=== PATIENT | female | born 1940 | race Caucasian/White ===

== ENCOUNTER 2016-12-15 07:48 | Emergency (ER) | payer MEDICARE, BC ==
[2016-12-15] MEDS ORDERED: Sodium Chloride 0.9% 10 ML Syringe FLUSH PRN (08:05)
[2016-12-15] MEDS ORDERED: Ondansetron 4 MG/2 ML SDV IVPUSH ONE (08:05)
--- NOTE | 2016-12-15 08:13 | EDM.PDOC ---
ED HPI GENERAL MEDICAL PROBLEM - General Chief Complaint: Genitourinary Problem Stated Complaint: BACK AND ABDOMINAL PAIN Time Seen by Provider: 12/15/16 08:00 Source of Information: Reports: Patient History Limitations: Reports: No Limitations - History of Present Illness INITIAL COMMENTS - FREE TEXT/NARRATIVE: The patient presents with right flank pain that radiates to her right lower abdomen. She has some nausea but no vomiting. She has no dysuria or hematuria. She has never had kidney stones before. She has no diarrhea. This started through the night. She has no fever, chills, cough, congestion, chest pain, or shortness of breath. She says the pain comes and goes. She has no appendix but she does have a gallbladder. She has never had kidney stones before. Onset: Gradual Duration: Day(s): (Through the night) Location: Reports: Abdomen (and right flank) Quality: Reports: Sharp Severity: Moderate Improves with: Reports: None Worsens with: Reports: None Associated Symptoms: Reports: Nausea/Vomiting. Denies: Chest Pain, Cough, Fever /Chills, Shortness of Breath Right Flank Pain Score (Numeric/FACES): 5 - Related Data Allergies Allergy/AdvReac Type Severity Reaction Status Date / Time No Known Allergies Allergy Verified 12/15/16 07:52 Home Meds: Home Meds Aspirin [Halfprin] 81 mg PO BRK 12/15/16 [History] Hydrochlorothiazide 12.5 mg PO DAILY 12/15/16 [History] Hydrocodone/Acetaminophen [Hydrocodon-Acetaminophen 5-325] 1 - 2 each PO Q6HR PRN #20 tablet 12/15/16 [Rx] Losartan [Cozaar] 50 mg PO DAILY 12/15/16 [History] Spironolactone [Aldactone] 25 mg PO DAILY 12/15/16 [History] Tamsulosin HCl [Flomax] 0.4 mg PO DAILY #10 cap.er.24h 12/15/16 [Rx] Ubidecarenone [Coq-10] 400 mg PO DAILY 12/15/16 [History] atorvaSTATin [Lipitor] 5 mg PO BEDTIME 12/15/16 [History] Past Medical History Cardiovascular History: Reports: High Cholesterol, Hypertension - Past Surgical History GI Surgical History: Reports: Appendectomy Female Surgical History: Reports: Hysterectomy Social & Family History - Tobacco Use Smoking Status *Q: Never Smoker Second Hand Smoke Exposure: No ED ROS GENERAL - Review of Systems Review Of Systems: See Below Constitutional: Reports: No Symptoms HEENT: Reports: No Symptoms Respiratory: Reports: No Symptoms Cardiovascular: Reports: No Symptoms Endocrine: Reports: No Symptoms GI/Abdominal: Reports: Abdominal Pain, Nausea. Denies: Diarrhea, Vomiting : Reports: Flank Pain (right). Denies: Dysuria Musculoskeletal: Reports: No Symptoms ED EXAM, GI/ABD - Physical Exam Exam: See Below Exam Limited By: No Limitations General Appearance: Alert, No Apparent Distress Ears: Normal External Exam Nose: Normal Inspection Head: Atraumatic, Normocephalic Neck: Normal Inspection Respiratory/Chest: No Respiratory Distress, Lungs Clear, Normal Breath Sounds Cardiovascular: Regular Rate, Rhythm, No Edema, No Murmur GI/Abdominal: Soft, Non-Tender, No Organomegaly, No Mass Back Exam: Normal Inspection Extremities: Normal Inspection Course - Vital Signs Last Recorded V/S: Last Vital Signs Temp 96.6 F 12/15/16 07:52 Pulse 63 12/15/16 07:52 Resp 16 12/15/16 07:52 BP 184/69 H 12/15/16 07:52 Pulse Ox 97 12/15/16 07:52 - Orders/Labs/Meds Orders: Active Orders 24 hr Category Date Time Status Peripheral IV Care [RC] . DIRECTED Care 12/15/16 08:06 Active Sodium Chloride 0.9% [Normal Saline] 1,000 ml Med 12/15/16 08:15 Active IV ASDIRECTED Sodium Chloride 0.9% [Saline Flush] Med 12/15/16 08:05 Active 10 ml FLUSH ASDIRECTED PRN ED Antiemetic Medication Reflex [OM.PC] Stat Oth 12/15/16 08:05 Ordered Peripheral IV Insertion Adult [OM.PC] Stat Oth 12/15/16 08:05 Ordered Medication Orders Sodium Chloride (Normal Saline) 1,000 mls @ 125 mls/hr IV ASDIRECTED PARTHA Last Admin: 12/15/16 08:41 Dose: 125 mls/hr Sodium Chloride (Saline Flush) 10 ml FLUSH ASDIRECTED PRN PRN Reason: Keep Vein Open Last Admin: 12/15/16 08:48 Dose: 10 ml Labs: Laboratory Tests 12/15/16 12/15/16 12/15/16 Range/Units 08:30 08:30 08:30 WBC 8.50 (3.98-10.04) K/mm3 RBC 4.05 (3.98-5.22) M/mm3 Hgb 12.2 (11.2-15.7) gm/L Hct 36.7 (34.1-44.9) % MCV 90.6 (79.4-94.8) fl MCH 30.1 (25.6-32.2) pg MCHC 33.2 (32.2-35.5) g/dl RDW Std Deviation 41.1 (36.4-46.3) fL Plt Count 214 (182-369) K/mm3 MPV 10.7 (9.4-12.3) fl Neut % (Auto) 78.0 H (34.0-71.1) % Lymph % (Auto) 13.6 L (19.3-51.7) % [place] % (Auto) 5.8 (4.7-12.5) % Eos % (Auto) 1.9 (0.7-5.8) Baso % (Auto) 0.2 (0.1-1.2) % Neut # (Auto) 6.63 H (1.56-6.13) K/mm3 Lymph # (Auto) 1.16 L (1.18-3.74) K/mm3 [place] # (Auto) 0.49 H (0.24-0.36) K/mm3 Eos # (Auto) 0.16 (0.04-0.36) K/mm3 Baso # (Auto) 0.02 (0.01-0.08) K/mm3 Sodium 138 (136-145) mEq/L Potassium 4.8 (3.5-5.1) mEq/L Chloride 103 (98-107) mEq/L Carbon Dioxide 24 (21-32) mEq/L Anion Gap 15.8 H (5-15) BUN 42 H (7-18) mg/dL Creatinine 1.4 H (0.55-1.02) mg/dL Est Cr Clr Drug Dosing 25.39 mL/min Estimated GFR (MDRD) 36 (>60) mL/min BUN/Creatinine Ratio 30.0 H (14-18) Glucose 178 H (83-115) mg/dL Calcium 9.5 (8.5-10.1) mg/dL Total Bilirubin 0.4 (0.2-1.0) mg/dL AST 18 (15-37) U/L ALT 25 (14-59) U/L Alkaline Phosphatase 65 (46-116) U/L Total Protein 7.7 (6.4-8.2) g/dl Albumin 3.8 (3.4-5.0) g/dl Globulin 3.9 gm/dL Albumin/Globulin Ratio 1.0 (1-2) Lipase 137 (73-393) U/L Urine Color Yellow (Yellow) Urine Appearance Clear (Clear) Urine pH 5.5 (5.0-8.0) Ur Specific [place] 1.020 (1.005-1.030) Urine Protein Negative (Negative) Urine Glucose (UA) Negative (Negative) Urine Ketones Negative (Negative) Urine Occult Blood 2+ H (Negative) Urine Nitrite Negative (Negative) Urine Bilirubin Negative (Negative) Urine Urobilinogen 0.2 (0.2-1.0) Ur Leukocyte Esterase Negative (Negative) Urine RBC 5-10 H (0-5) /hpf Urine WBC 0-5 (0-5) /hpf Ur Epithelial Cells 0-5 (0-5) /hpf Urine Bacteria Few (FEW) /hpf Urine Mucus Few (FEW) /hpf Meds: Medications Generic Name Dose Route Start Last Admin Trade Name Freq PRN Reason Stop Dose Admin Sodium Chloride 1,000 mls @ 125 mls/hr 12/15/16 08:15 12/15/16 08:41 Normal Saline IV 125 mls/hr ASDIRECTED PARTHA Administration Sodium Chloride 10 ml 12/15/16 08:05 12/15/16 08:48 Saline Flush FLUSH 10 ml ASDIRECTED PRN Administration Keep Vein Open Discontinued Medications Generic Name Dose Route Start Last Admin Trade Name Freq PRN Reason Stop Dose Admin Hydromorphone HCl 0.5 mg 12/15/16 10:05 Dilaudid IVPUSH 12/15/16 10:06 ONETIME ONE Ketorolac Tromethamine 30 mg 12/15/16 08:47 12/15/16 08:50 Toradol IVPUSH 12/15/16 08:48 30 mg ONETIME ONE Administration Ondansetron HCl 4 mg 12/15/16 08:05 12/15/16 08:42 Zofran IVPUSH 12/15/16 08:06 4 mg ONETIME ONE Administration - Re-Assessments/Exams Free Text/Narrative Re-Assessment/Exam: 12/15/16 08:12 I ordered an IV NS at 125ml/hr, zofran 4mg IV, labs, UA and a CT of her abdomen and pelvis. 12/15/16 10:10 Her CBC looks good. Her creatinine was slightly elevated at 1.4. Her UA shows some blood. Her CT shows right sided hydronephrosis cause by an obstructing proximal right ureteral calculus measuring approximately 3mm. This calculus is located at the level of L4-L5. Cysts within both kidneys. She was starting to have more pain so ordered toradol 30mg IV and some dilaudid 0.5mg IV. I will get her on some flomax and some hydrocodone for pain. Departure - Departure Time of Disposition: 10:15 Disposition: Home, Self-Care 01 Condition: good Clinical Impression: Kidney stone, Calculus, ureteral - Discharge Information Prescriptions: Hydrocodone/Acetaminophen [Hydrocodon-Acetaminophen 5-325] 1 - 2 each PO Q6HR PRN #20 tablet PRN Reason: Pain Tamsulosin HCl [Flomax] 0.4 mg PO DAILY #10 cap.er.24h Referrals: Jai Mckenzie MD [Primary Care Provider] - Keo Walker MD [Physician] - Forms: ED Department Discharge Additional Instructions: Drink plenty of fluids. Take motrin or aleve for pain or you can take the hydrocodone for pain. Take the flomax daily until you pass the stone. Follow up with Dr Mckenzie or Dr Walker the urologist if you do not pass the stone in about 5 days. Please return if you are worse such as more pain, nausea or vomiting. - My Orders Last 24 Hours: My Active Orders 12/15/16 08:05 Sodium Chloride 0.9% [Saline Flush] 10 ml FLUSH ASDIRECTED PRN ED Antiemetic Medication Reflex [OM.PC] Stat Peripheral IV Insertion Adult [OM.PC] Stat 12/15/16 08:06 Peripheral IV Care [RC] . DIRECTED 12/15/16 08:15 Sodium Chloride 0.9% [Normal Saline] 1,000 ml IV ASDIRECTED - Assessment/Plan Last 24 Hours: My Active Orders 12/15/16 08:05 Sodium Chloride 0.9% [Saline Flush] 10 ml FLUSH ASDIRECTED PRN ED Antiemetic Medication Reflex [OM.PC] Stat Peripheral IV Insertion Adult [OM.PC] Stat 12/15/16 08:06 Peripheral IV Care [RC] . DIRECTED 12/15/16 08:15 Sodium Chloride 0.9% [Normal Saline] 1,000 ml IV ASDIRECTED
[2016-12-15] MEDS ORDERED: Sodium Chloride 0.9% 1,000 ML IV SCH (08:15)
[2016-12-15] MEDS ORDERED: Ketorolac 30 MG/ML SDV IVPUSH ONE (08:47)
--- NOTE | 2016-12-15 09:43 | CT ---
CT abdomen and pelvis Technique: Multiple axial sections were obtained from above the dome of the diaphragm inferiorly through the pubic symphysis. Intravenous and oral contrast was not utilized. Study has been performed as a ureteral stone protocol. Comparison: No previous intra-abdominal imaging is available. Findings: Right kidney shows hydronephrosis. This finding is due to an obstructing proximal right ureteral stone measuring about 3 mm. This ureteral calculus occurs at the L4-5 level. No additional ureteral calculi are seen. Cyst is identified within the right kidney measuring 3.8 cm. Smaller cyst is noted within the inferior right kidney measuring 9 mm. Small hyperdense area is noted off the more superior right kidney which is felt compatible with a small hemorrhagic cyst measuring 8 mm. Several small cysts are seen within the left kidney measuring less than 1 cm. Small portion of the visualized lung bases shows nothing acute. Noncontrast appearance of the liver and spleen appears within normal limits. Adrenal glands show no nodule. Pancreas is within normal limits. Aorta and iliac vessels shows atherosclerotic change without aneurysmal dilatation. Small normal appearing retroperitoneal lymph nodes are seen. No mesenteric abnormalities are seen. Mild scattered degenerative change is noted within the spine. Impression: 1. Right-sided hydronephrosis caused by an obstructing proximal right ureteral calculus measuring approximately 3 mm. This calculus located at the level of L4-5. 2. Cysts within both kidneys. 3. Other incidental findings. Diagnostic code #3
[2016-12-15] MEDS ORDERED: HYDROmorphone 0.5 MG/0.5 ML Syringe IVPUSH ONE (10:05)
[2016-12-15 11:34] VITALS: BP 130/59
== END 2016-12-15 10:45 | disposition home or self-care (01) ==
LOC: JD.ED 07:48
DX: N13.2 Hydronephrosis with renal and ureteral calculous obstruction (principal); I10 Essential (primary) hypertension; E78.00 Pure hypercholesterolemia, unspecified; Z90.49 Acquired absence of other specified parts of digestive tract; Z90.710 Acquired absence of both cervix and uterus; Z79.82 Long term (current) use of aspirin; Z79.899 Other long term (current) drug therapy
CPT/HCPCS: 36415; 74176; 80053; 81001; 83690; 85025; 96361; 96374; 96375; 99284; J1170; J1885; J2405; J7040; J7050

== ENCOUNTER 2019-07-09 16:28 | Emergency (ER) | payer MEDICARE, BC ==
[2019-07-09 16:47] VITALS: BP 178/74; PULSE 80
--- NOTE | 2019-07-09 16:49 | EDM.PDOC ---
ED HPI GENERAL MEDICAL PROBLEM - General Chief Complaint: Lower Extremity Injury/Pain Stated Complaint: LT KNEE INJURY Time Seen by Provider: 07/09/19 16:38 Source of Information: Reports: Patient, Family (spouse) History Limitations: Reports: No Limitations - History of Present Illness INITIAL COMMENTS - FREE TEXT/NARRATIVE: 79-year-old female presents to the ED with acute left knee pain. She reports that she was just going up stairs and developed sudden onset of severe pain posterior medial left knee. This occurred about an hour ago. She never slipped or fell. Previous positive her knees. Pain is severe with trying to weight- bear. Also the pain in the posterior aspect of the knee when she tries to weight -bear. No previous left knee surgeries. Onset: Today Onset Date: 07/09/19 Onset Time: 15:45 Duration: Minutes: Location: Reports: Lower Extremity, Left (Left posterior medial knee pain) Quality: Reports: Ache, Stabbing, Other Severity: Mild (Much worse with trying to weight-bear mild at rest moderate to severe with weightbearing) Improves with: Reports: Rest Worsens with: Reports: Movement Context: Denies: Activity, Exercise (Weightbearing), Lifting, Sick Contact, Trauma, Other Associated Symptoms: Reports: No Other Symptoms Left Knee Pain Score (Numeric/FACES): 8 - Related Data Allergies Allergy/AdvReac Type Severity Reaction Status Date / Time No Known Allergies Allergy Verified 07/09/19 16:37 Home Meds: Home Meds Aspirin [Halfprin] 81 mg PO DAILY 12/15/16 [History] Losartan [Cozaar] 100 mg PO DAILY 12/15/16 [History] Ubidecarenone [Coq-10] 400 mg PO DAILY 12/15/16 [History] atorvaSTATin [Lipitor] 5 mg PO BEDTIME 12/15/16 [History] hydroCHLOROthiazide [Hydrochlorothiazide] 12.5 mg PO DAILY 12/15/16 [History] Dorzolamide HCl/Pf [Dorzolamide 2% Eye Drop] 1 drop OP BID 07/09/19 [History] Meloxicam 15 mg PO DAILY #12 tablet 07/09/19 [Rx] Multivitamin [Multi-Vitamin Daily] 1 each PO DAILY 07/09/19 [History] Propylene Glycol/PEG 400/Pf [Systane 0.3-0.4% Eye Drops] 1 each OP BID 07/09/19 [History] Vit C/E/Zn/Coppr/Lutein/Zeaxan [Preservision Areds 2 Softgel] 1 each PO DAILY [History] amLODIPine [Norvasc] 2.5 mg PO DAILY 07/09/19 [History] oxyCODONE HCl/Acetaminophen [Percocet 5-325 mg Tablet] 1 - 2 each PO Q4H PRN # 15 tablet 07/09/19 [Rx] Past Medical History Cardiovascular History: Reports: High Cholesterol, Hypertension - Past Surgical History GI Surgical History: Reports: Appendectomy Female Surgical History: Reports: Hysterectomy Social & Family History - Tobacco Use Smoking Status *Q: Never Smoker - Caffeine Use Caffeine Use: Reports: Coffee - Recreational Drug Use Recreational Drug Use: No - Living Situation & Occupation Living situation: Reports: Occupation: Retired Review of Systems - Review of Systems Review Of Systems: See Below Constitutional: Reports: No Symptoms Eyes: Reports: Glasses Ears: Reports: No Symptoms Nose: Reports: No Symptoms Mouth/Throat: Reports: No Symptoms Respiratory: Reports: No Symptoms Cardiovascular: Reports: No Symptoms, Other (History of hypertension) GI/Abdominal: Reports: No Symptoms Genitourinary: Reports: Other (Urinary frequency.) Musculoskeletal: Reports: Neck Pain (Occasional), Shoulder Pain ( occasionaloccasional ), Back Pain, Joint Pain (QT left knee pain today.) Skin: Reports: No Symptoms Neurological: Reports: No Symptoms Psychiatric: Reports: No Symptoms ED EXAM, GENERAL - Physical Exam Exam: See Below Exam Limited By: No Limitations General Appearance: Alert, WD/WN, No Apparent Distress, Other (Capture 37.1. Heart rate is 80 and sinus. BP mildly elevated 178/74.) Extremities: Other (Examination was limited to both lower extremities. She has no dependent edema. She had full normal range of motion of her right knee and no pain on palpation of the calf or tendons around the knee. On the left side clinically she has a very minimal effusion. Is tenderness along the medial joint space particularly over the week MCL ligament. However there is no evidence that there is any laxity of the cruciates or the MCL ligament. Dressing the medial meniscus did 18 exacerbate her pains suggesting medial meniscal tear. Patellofemoral articulation appears to be normal) Neurological: Alert, Oriented, CN II-XII Intact, Normal Cognition. No: Normal Gait (Severe limping gait when she tries to put any weight on the left knee.) Psychiatric: Normal Affect, Normal Mood Skin Exam: Warm, Dry, Intact, Normal Color, No Rash Course - Vital Signs Last Recorded V/S: Last Vital Signs Temp 37.1 C 07/09/19 16:35 Pulse 80 07/09/19 16:35 Resp 16 07/09/19 16:35 BP 178/74 H 07/09/19 16:35 Pulse Ox 100 07/09/19 16:35 - Orders/Labs/Meds Orders: Active Orders 24 hr Category Date Time Status Knee 3V Lt [CR] Stat Exams 07/09/19 16:42 Taken DME for Discharge [COMM] Routine Oth 07/09/19 17:12 Ordered - Radiology Interpretation Free Text/Narrative:: 79-year-old female presents the ED with acute onset of pain the medial posterior aspect of her left knee while she was walking upstairs. She never slipped or fell. There was no twist injury to the knee. He has problems with her knee or previous surgery. Reveals a very minimal effusion. About an hour ago. Severe pain medial posterior knee with weightbearing. Ligaments appear to be intact. Dressing the medial meniscus exacerbated her pain suggesting medial meniscal tear. Carlos A x-ray of the knee will be obtained to make sure we do not see any obvious loose bodies or occult fracture. She reports that she is osteopenic - Re-Assessments/Exams Free Text/Narrative Re-Assessment/Exam: 07/09/19 17:15: X-ray of the left knee possibly shows a very minimal loose body in the midline of the knee. There is very minimal degenerative arthritic change in the true knee joint and patellofemoral articulation is normal. On reexamination ligaments are intact and no laxity of the MCL identified. There is a very minimal traumatic effusion. Stressing the medial meniscus was strongly positive clinically she has a tear of her medial meniscus. I will have her follow-up with Dr. Brunett in 10 days' time. Advised that often the pain will settle down over a week or 10 days and no further intervention is required. An MRI will be booked as an outpatient due to her age there is a much higher risk of a significant tear need for surgery. She and her have plans to travel to [place] in the next week to 10 days for winter vacation. Therefore she needs something done she would prefer to have surgery as soon as possible. The meantime I will place her on meloxicam acting milligrams once daily for 12 days. She will stop her aspirin 81 mg once daily while on the meloxicam. Percocet tabs 5/3/25 milligrams strength one tablet every 4-6 hours as needed for pain relief. Advised pain is often quite bad for the first 3 days and then usually subsides a good deal. Ice pack to the area one half hour out of every 4 hours today and tomorrow. After that may apply heat. By surgery make a follow- up appoint with Dr. Story- orthopedic surgeon-- tomorrow morning as she knows cancel the appointment in 10 days' time of her knee gets much better. Departure - Departure Time of Disposition: 17:09 Disposition: Home, Self-Care 01 Condition: Fair Clinical Impression: Acute internal derangement of left knee Acute medial meniscal tear Qualifiers: Encounter type: initial encounter Laterality: left Qualified Code(s): S83.242A - Other tear of medial meniscus, current injury, left knee, initial encounter - Discharge Information *PRESCRIPTION DRUG MONITORING PROGRAM REVIEWED*: Not Applicable *COPY OF PRESCRIPTION DRUG MONITORING REPORT IN PATIENT ISMAEL: Not Applicable Prescriptions: Meloxicam 15 mg PO DAILY #12 tablet oxyCODONE HCl/Acetaminophen [Percocet 5-325 mg Tablet] 1 - 2 each PO Q4H PRN # 15 tablet PRN Reason: pain relief. Instructions: How to Use a Knee Immobilizer, [id number], Pain Medicine Instructions, [id number] Referrals: Jai Mckenzie MD [Primary Care Provider] - Forms: ED Department Discharge Additional Instructions: Evaluation the emergency room today in regards to acute pain in the left knee that occurred was stepping up stairs this afternoon. Examination shows a very minimal amount of fluid within the knee or what we call a effusion or swelling. Ligaments are all intact. Stressing the medial meniscus however cause significant pain medial meniscal( cartilage) tear. This will make weightbearing very painful for the next 3 days and then should start to slowly improve. The may swell more over the next 12-24 hours depending on the severity of the tear are now much bleeding goes on to the knee. Ice pack to the knee for one half hour out of every 4 hours today and tomorrow. After this may apply heat to the knee. Treatment is left knee immobilizer ideally on during the day and off at night although her depends him anytime she get up to the washroom he may leave it on overnight as well. Asked a walker to age her balance and help you walk until the knee gets better. I will arrange for an MRI as an outpatient and I will do x-ray department call you tomorrow with an appointment time to MRI your knee. Please make an appointment to see Dr. Story--orthopedic surgeon tomorrow morning when his clinic opens in about 10 days time. We usually wait 7- 10 days to see if the knee pain settles down before decisions about any operative intervention are required. The MRI will help sort this out. His phone number is [phone]. Medication is to be meloxicam 15 mg once daily for the next 12 days with food. Percocet tabs 5/325 mg for pain relief it could take one tablet every 4-6 hours as needed for pain relief for the first 3 or 4 days usually should take with a little something in your stomach. If you need more than 4 tablets a day he will also have to take a medication to prevent constipation such as MiraLAX powder 17 g or 1 scoop daily to prevent constipation while on the pain pills. Do not drive or operate a motor vehicle if you're taking the pain pills. Sepsis Event Note - Evaluation Sepsis Screening Result: No Definite Risk - Focused Exam Vital Signs: Vital Signs Temp Pulse Resp BP Pulse Ox 07/09/19 16:35 37.1 C 80 16 178/74 H 100 Date Exam was Performed: 07/09/19 Time Exam was Performed: 17:23 - My Orders Last 24 Hours: My Active Orders 07/09/19 16:42 Knee 3V Lt [CR] Stat 07/09/19 17:12 DME for Discharge [COMM] Routine - Assessment/Plan Last 24 Hours: My Active Orders 07/09/19 16:42 Knee 3V Lt [CR] Stat 07/09/19 17:12 DME for Discharge [COMM] Routine
--- NOTE | 2019-07-10 10:12 | CR ---
Left knee: AP, lateral and sunrise patellar views of the left knee were obtained. Comparison: No prior knee exam. Medial and lateral joint spaces are preserved. No joint effusion is seen. Minimal spurring is noted off the patella. No additional abnormality is seen. Impression: 1. Slight spurring off the patella. 2. Left knee study is otherwise unremarkable. Diagnostic code #2 This report was dictated in [place] Standard Time
== END 2019-07-09 17:39 | disposition home or self-care (01) ==
LOC: JD.ED 16:28
DX: S83.242A Other tear of medial meniscus, current injury, left knee, initial encounter (principal); I10 Essential (primary) hypertension; Z79.899 Other long term (current) drug therapy; Z79.82 Long term (current) use of aspirin; X50.9XXA Other and unspecified overexertion or strenuous movements or postures, initial encounter
CPT/HCPCS: 73562-26-LT; 73562-LT; 99283; 99283-25

== ENCOUNTER → 2025-01-04 | Day surgery (SDC) | payer MEDICARE, BC ==
[~2025-01-04] MED LIST: Bupivacaine 0.25% 10 ML SDV ONE; HYDROmorphone 0.5 MG/0.5 ML Syringe IVPUSH PRN; Lidocaine 1% 10 ML MDV ONE; Midazolam 1 MG/ML 2 ML SDV ONE; Ondansetron 4 MG/2 ML SDV IVPUSH PRN; Propofol 200 MG/20 ML SDV ONE; Ropivacaine 0.5% 5 MG/ML 30 ML SDV ONE; Sodium Chloride 0.9% 10 ML Syringe FLUSH PRN; Sodium Chloride 0.9% 10 ML Syringe FLUSH SCH; fentaNYL 100 MCG/2 ML SDV IVPUSH PRN; fentaNYL 100 MCG/2 ML SDV ONE
[2025-01-04] MEDS: Lactated Ringers 1,000 ML IV SCH (06:30)
[2025-01-04 08:08] VITALS: BP 141/57; PULSE 50
== END | disposition home or self-care (01) ==
LOC: JD.SDS 06:15
PROVIDERS: ATTEND Orthopaedic Surgery
DX: M65.311 Trigger thumb, right thumb (principal); M65.841 Other synovitis and tenosynovitis, right hand; I10 Essential (primary) hypertension; E11.9 Type 2 diabetes mellitus without complications; E78.2 Mixed hyperlipidemia; Z79.899 Other long term (current) drug therapy
CPT/HCPCS: 26055; J2250; J2704; J2795; J3010; J7120; 01810; 64450; 99100; J0665; J2003